=== PATIENT | male | born 1940 | race Caucasian/White ===

== ENCOUNTER → 2017-12-08 | Outpatient (CLI) | payer MEDICARE, BC ==
[~2017-12-08] MED LIST: ALP5 PO; ALPR-459 PO; AMIT-106 PO; AMOX-559 PO; ATOR10TA24 PO; BETA1CAP PO; CYAN1TAB7 PO; FLU45SYR25 IM ONLY; FOLI-68 PO; GLUC-139 PO; HYDR-389 PO; IBUP-1671 PO; LANS30CA63 PO; LANS30CA70 PO; LEVO-85 PO; MET50 PO; OMEG-96 PO; OMEG100027 PO; PROP20TA56 PO; PROP60CA22; SAW80CAP4 PO; UBID10CA11 PO; UBID50CA21 PO; VITA-175 PO; ZOL5 PO; ZOLP-1 PO; [UNRECOGNIZED DRUG - CODE] PO
== END ==
LOC: LAB 15:58
DX: C61 Malignant neoplasm of prostate (principal)
CPT/HCPCS: 36415; 84154

== ENCOUNTER 2017-12-31 06:14 | Emergency (ER) | payer MEDICARE, BC ==
[~2017-12-31] VITALS: Ht 182.9 cm; Wt 97.1 kg
[2017-12-31] MEDS ORDERED: PROP40TA45 PO (06:28)
--- NOTE | 2017-12-31 06:32 | ER Report ---
History and Physical Time Seen By MD: 06:26 Hx. of Stated Complaint: Upper midline (esophageal) discomfort, high blood pressure. (DARREL CANTU MD) HPI/ROS CHIEF COMPLAINT: elevated blood pressure, chest pressure HISTORY OF PRESENT ILLNESS: This is a 77 year old male. He was going to be going to bed at about 0200 and felt like his blood pressure was elevated. He had a "funny feeling" on the left side of his body, which he cannot describe further. He then felt some chest pressure across his chest starting in his left substernal and then eventually moving to the right side. It continues to move around the chest and epigastric area. He took one of his 40mg Propranolol, and seemed to improve a little. He later took a Xanax, which did not seem to change the symptoms. He also chewed two Gavisgon chews which did not seem to help. He went to bed at about 0400, but could not sleep. Pain would change depending on his positioning. He felt like the pain was GI related at this time. Seemed to improve a little with sitting up in a chair, but blood pressure increased again. 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 He has no fevers or chills with this. He has had normal bowel movements the last few days. he has intermittent problems with urination, but no changes. He sees Dr. Contreras for this, and has a history of prostate cancer and is just monitoring this at this time. He denies being short of breath. He has no vision changes or headache with this. He did feel a little bit dizzy. (DARREL CANTU MD) Allergies: Coded Allergies: Sulfa (Sulfonamide Antibiotics) (Verified Allergy, Mild, 12/31/17) iodine (Verified Allergy, Mild, 12/31/17) latex (Unverified Allergy, Unknown, 12/31/17) Uncoded Allergies: ENVIROMENTAL ALLERGIES (Allergy, Mild, 12/12/07) Home Meds Reported Medications Propranolol Hcl (PROPRANOLOL HCL) 40 Mg Tablet, 40 MG PO BID 12/31/17 Beta-Carotene(A) W-C & E/Se (ANTIOXIDANT SOFTGELS) 1 Each Capsule, 1 EACH PO DAILY, CAPSULE 07/19/17 [place]-3 Fatty Acids/Fish Oil (OMEGA 3 1,000 MG SOFTGEL) Unknown Strength Capsule , PO QDAY, CAPSULE 07/19/17 Vitamin B Complex (B COMPLEX) 1 Each Tablet, 1 EACH PO DAILY 07/19/17 Ubidecarenone (CO Q-10) Unknown Strength Capsule, PO, CAPSULE 07/19/17 Zolpidem Tartrate (AMBIEN) 5 Mg Tablet, 1 TAB PO QHS Y for INSOMNIA, TAB 01/29/16 Lansoprazole (LANSOPRAZOLE) 30 Mg Capsule.dr, 1 TAB PO QDAY 08/01/15 Atorvastatin Calcium (LIPITOR) 10 Mg Tablet, 1 TAB PO HS, TAB 08/01/15 Amitriptyline Hcl (AMITRIPTYLINE HCL) 25 Mg Tablet, 40-50 MG PO QHS 08/01/15 Alprazolam (ALPRAZOLAM) 0.25 Mg Tab.rapdis, 1 TAB PO DAILY Y for SPASMS, TAB 08/01/15 Discontinued Reported Medications Propranolol Hcl (PROPRANOLOL HCL) 20 Mg Tablet, 0.5-1 MG PO BID, TAB 01/29/16 Discontinued Scripts Amoxicillin/Pot Clav 875-125 Mg Tab (AUGMENTIN 875-125 TABLET) 1 Each Tablet, 1 TAB PO Q12H, #18 TAB Prov:JONN ANTONIO PAMiriamC 10/31/17 Reviewed Nurses Notes: Yes (DARREL CANTU MD) Hx Smoking: Yes (SMOKED OFF AND ON TILL AGE 30YR (PIPE OR CIGAR OCCASIONAL)) Smoking Status: Former Smoker Hx Substance Use Disorder: No Hx Alcohol Use: Yes (2-4 WEEKLY) (DARREL CANTU MD) Constitutional Vital Sign - Last 24 Hours 12/31/17 12/31/17 12/31/17 12/31/17 06:14 06:22 06:22 06:29 Temp 97.9 Pulse ??? 67 64 Resp 16 14 B/P (MAP) 181/108 181/108 (132) Pulse Ox 90 96 O2 Delivery Room Air 12/31/17 12/31/17 12/31/17 12/31/17 06:30 06:44 06:59 07:08 Pulse 65 67 Resp 6 10 B/P (MAP) 180/112 (134) 180/99 (126) Pulse Ox 94 93 12/31/17 12/31/17 12/31/17 12/31/17 07:14 07:19 07:30 07:33 Pulse 65 ??? Resp 14 B/P (MAP) 188/110 (136) 182/113 (136) Pulse Ox 96 18 18 18 12/31/17 07:34 07:39 07:45 07:50 Pulse 59 60 Resp 19 25 B/P (MAP) 165/102 (123) 173/105 (127) Pulse Ox 93 12/31/17 12/31/17 12/31/17 12/31/17 08:00 08:05 08:20 08:25 Pulse 60 58 60 Resp 19 35 36 B/P (MAP) 173/109 (130) Pulse Ox 94 94 95 12/31/17 12/31/17 12/31/17 12/31/17 08:33 08:40 08:45 08:55 Pulse 58 60 Resp 37 19 B/P (MAP) 148/92 164/92 Pulse Ox 95 93 12/31/17 12/31/17 12/31/17 12/31/17 09:03 09:10 09:15 09:19 Pulse 62 60 Resp 21 12 B/P (MAP) 184/99 177/102 Pulse Ox 95 90 12/31/17 12/31/17 12/31/17 12/31/17 09:24 09:30 09:44 09:50 Pulse 75 ??? Resp 21 B/P (MAP) 109/80 (90) 134/81 (98) 137/93 (108) Pulse Ox 91 Intake and Output 12/31/17 12/31/17 01/01/18 15:00 23:00 07:00 Intake Total 1000 ml Balance 1000 ml (CYNTHIA PEREZ MD) Physical Exam General Appearance: The patient is alert. No acute distress. Non-toxic in appearance. Eyes: Pupils are equal, round. No pallor, injection or icterus. ENT: Mucous membranes are moist. Normal oral mucosa. Posterior oropharynx is normal. Respiratory: Lungs are clear to auscultation. Cardiovascular: Regular rate and rhythm. No murmurs, gallops or rubs. Normal capillary refill. Gastrointestinal: Abdomen is soft and non tender. Nondistended. Normal active bowel sounds. Neurological: Alert and oriented x3. No focal neurologic deficits Skin: Warm and dry. Musculoskeletal: Extremities are nontender. DIFFERENTIAL DIAGNOSIS: After history and physical exam, differential diagnosis was considered for chest pain including but not limited to myocardial ischemia, pericarditis pulmonary embolus, chest wall pain, pleural inflammation and pulmonary infectious causes. ([facility]) Medical Decision Making Data Points Result Diagram: 12/31/17 0708 12/31/17 0708 Laboratory Hematology Test 12/31/17 07:08 12/31/17 10:27 Red Blood Count 5.17 M/uL (4.00-5.60) Mean Corpuscular Volume 93.8 fL (80.0-96.0) Mean Corpuscular Hemoglobin 31.4 pg (26.0-33.0) Mean Corpuscular Hemoglobin Concent 33.5 g/dL (32.0-36.0) Red Cell Distribution Width 14.7 % (11.5-14.5) Mean Platelet Volume 9.5 fL (7.2-11.1) Neutrophils (%) (Auto) 46.4 % (39.4-72.5) Lymphocytes (%) (Auto) 37.4 % (17.6-49.6) Monocytes (%) (Auto) 9.9 % (4.1-12.4) Eosinophils (%) (Auto) 3.8 % (0.4-6.7) Basophils (%) (Auto) 2.5 % (0.3-1.4) Nucleated RBC Relative Count (auto) 0.0 /100WBC Neutrophils # (Auto) 3.6 K/uL (2.0-7.4) Lymphocytes # (Auto) 2.9 K/uL (1.3-3.6) Monocytes # (Auto) 0.8 K/uL (0.3-1.0) Eosinophils # (Auto) 0.3 K/uL (0.0-0.5) Basophils # (Auto) 0.2 K/uL (0.0-0.1) Nucleated RBC Absolute Count (auto) 0.00 K/uL Sodium Level 138 mmol/L (137-145) Potassium Level 4.7 mmol/L (3.5-5.0) Chloride Level 101 mmol/L (98-107) Carbon Dioxide Level 26 mmol/L (22-30) Blood Urea Nitrogen 17 mg/dl (9-21) Creatinine 1.00 mg/dl (0.66-1.25) Glomerular Filtration Rate Calc > 60.0 Random Glucose 99 mg/dl (75-110) Calcium Level 9.5 mg/dl (8.4-10.2) Total Bilirubin 0.5 mg/dl (0.2-1.3) Aspartate Amino Transf (AST/SGOT) 28 U/L (0-35) Alanine Aminotransferase (ALT/SGPT) 40 U/L (0-56) Alkaline Phosphatase 53 U/L (0-126) Total Protein 7.6 gm/dl (6.3-8.2) Albumin 4.1 g/dl (3.5-5.0) Amylase Level 96 U/L (0-110) Lipase 123 U/L (23-300) Troponin I < 0.012 ng/ml Chemistry Test 12/31/17 07:08 12/31/17 10:27 White Blood Count 7.9 k/uL (4.5-11.0) Red Blood Count 5.17 M/uL (4.00-5.60) Hemoglobin 16.2 g/dL (14.0-18.0) Hematocrit 48.5 % (42.0-52.0) Mean Corpuscular Volume 93.8 fL (80.0-96.0) Mean Corpuscular Hemoglobin 31.4 pg (26.0-33.0) Mean Corpuscular Hemoglobin Concent 33.5 g/dL (32.0-36.0) Red Cell Distribution Width 14.7 % (11.5-14.5) Platelet Count 142 K/uL (150-450) Mean Platelet Volume 9.5 fL (7.2-11.1) Neutrophils (%) (Auto) 46.4 % (39.4-72.5) Lymphocytes (%) (Auto) 37.4 % (17.6-49.6) Monocytes (%) (Auto) 9.9 % (4.1-12.4) Eosinophils (%) (Auto) 3.8 % (0.4-6.7) Basophils (%) (Auto) 2.5 % (0.3-1.4) Nucleated RBC Relative Count (auto) 0.0 /100WBC Neutrophils # (Auto) 3.6 K/uL (2.0-7.4) Lymphocytes # (Auto) 2.9 K/uL (1.3-3.6) Monocytes # (Auto) 0.8 K/uL (0.3-1.0) Eosinophils # (Auto) 0.3 K/uL (0.0-0.5) Basophils # (Auto) 0.2 K/uL (0.0-0.1) Nucleated RBC Absolute Count (auto) 0.00 K/uL Glomerular Filtration Rate Calc > 60.0 Calcium Level 9.5 mg/dl (8.4-10.2) Total Bilirubin 0.5 mg/dl (0.2-1.3) Aspartate Amino Transf (AST/SGOT) 28 U/L (0-35) Alanine Aminotransferase (ALT/SGPT) 40 U/L (0-56) Alkaline Phosphatase 53 U/L (0-126) Total Protein 7.6 gm/dl (6.3-8.2) Albumin 4.1 g/dl (3.5-5.0) Amylase Level 96 U/L (0-110) Lipase 123 U/L (23-300) Troponin I < 0.012 ng/ml (CYNTHIA PEREZ MD) EKG/Imaging EKG Interpretation EKG shows sinus rhythm with first-degree AV block, when compared to an EKG from 02/05/2016 no appreciable changes were noted. Monitor Interpretation: Normal Sinus Rhythm Imaging FACILITY: [facility] PATIENT NAME: Dhruv Gonzalez : 1940 MR: [id number] V: [id number] EXAM DATE: ORDERING PHYSICIAN: DARREL CANTU TECHNOLOGIST: Location: [facility] Patient: Dhruv Gonzalez : 1940 Visit/Account:[id number] Date of Sevice: 12/31/2017 EXAMINATION: Abdominal series HISTORY: Epigastric and chest pain. COMPARISON: CT abdomen and pelvis from 08/01/2015. FINDINGS: PA upright view of the chest, 2 AP supine and 2 AP upright views of the abdomen are obtained. Lines/tubes: None. Bowel gas pattern: No distended loops of bowel, air fluid levels or free air. There is moderate amount of stool throughout the colon. Soft tissues: Surgical clips in the right upper quadrant. Bony structures: Degenerative changes of the spine. Visualized lungs: Negative. IMPRESSION: 1. No evidence of bowel obstruction or free air. 2. Moderate amount of stool in the colon could indicate constipation. Report Dictated By: Kelly Herring MD at 12/31/2017 7:44 AM Report E-Signed By: Kelly Herring MD at 12/31/2017 7:46 AM WSN:[id number] (CYNTHIA PEREZ MD) ED Course/Re-evaluation ED Course 12/31/2017 7:08:11 am patient with persistent elevated blood pressure EKG shows sinus rhythm with first-degree AV block otherwise normal. Plan will be to treat blood pressure with 20 mg of IV labetalol at this time. Plan will be repeat delta troponin at 4 hour window justine Re-evaluation 12/31/2017 10:56:11 am 2nd troponin remaining negative. Patient's blood pressure responded nicely to 2.5 mg of cardiac current blood pressure is 127/ 77. Patient is feeling better we'll discharge home with close follow-up with primary care provider Decision to Disposition Date: Dec 31, 2017 Decision to Disposition Time: 10:56 (CYNTHIA PEREZ MD) Depart Departure Latest Vital Signs Vital Signs Date Time Temp Pulse Resp B/P (MAP) Pulse Ox O2 Delivery O2 Flow Rate FiO2 12/31/17 09:50 137/93 (108) 12/31/17 09:44 ??? 12/31/17 09:24 21 91 12/31/17 06:22 97.9 Room Air (CYNTHIA PERZE MD) Impression: Primary Impression: Essential hypertension Condition: Improved Disposition: HOME OR SELF-CARE Patient Instructions: Hypertension (DC) Additional Instructions: Schedule follow-up with her primary care provider this week for repeat blood pressure check. Continue all your outpatient medications as directed DARREL CANTU MD Dec 31, 2017 06:32 CYNTHIA PEREZ MD Dec 31, 2017 07:10
[2017-12-31] MEDS ORDERED: ASPIRIN 81 MG CHEW PO ONE (06:50)
[2017-12-31] MEDS ORDERED: NS(*) 0.9% 1000 ML BAG 1,000 ML IV ONE (06:50)
[2017-12-31] MEDS ORDERED: PANTOPRAZOLE SOD 40 MG IV VIAL IVP ONE (06:50)
[2017-12-31] MEDS ORDERED: LABETALOL HCL 20 MG/4 ML SYR IVP STA (07:06)
[2017-12-31 07:27] LABS: PLATELET COUNT, AUTOMATED 142 K/uL (150-450)
[2017-12-31] MEDS ORDERED: NICARDIPINE IV ONE ×2 (07:40→09:15)
--- NOTE | 2017-12-31 07:50 | RADIOLOGY IMAGING REPORT ---
FACILITY: [facility] [place] PATIENT NAME: Dhruv Gonzalez : 1940 MR: [id number] V: [id number] EXAM DATE: ORDERING PHYSICIAN: DARREL CANTU TECHNOLOGIST: Location[place] [facility] [place] Patient: Dhruv Gonzalez : 1940 Visit/Account:[id number] Date of Sevice: 12/31/2017 EXAMINATION: Abdominal series HISTORY: Epigastric and chest pain. COMPARISON: CT abdomen and pelvis from 08/01/2015. FINDINGS: PA upright view of the chest, 2 AP supine and 2 AP upright views of the abdomen are obtaine d. Lines/tubes: None. Bowel gas pattern: No distended loops of bowel, air fluid levels or free air. There is moderate amou nt of stool throughout the colon. Soft tissues: Surgical clips in the right upper quadrant. Bony structures: Degenerative changes of the spine. Visualized lungs: Negative. IMPRESSION: 1. No evidence of bowel obstruction or free air. 2. Moderate amount of stool in the colon could indicate constipation. Report Dictated By: Kelly Herring MD at 12/31/2017 7:44 AM Report E-Signed By: Kelly Herring MD at 12/31/2017 7:46 AM WSN:[id number]
[2017-12-31] MEDS ORDERED: LORazepam 2 MG/ML VIAL IVP ONE (08:10)
--- NOTE | 2017-12-31 09:11 | EKG ---
[place] [facility] [place]IENT NAME: SHER BRAVO : [id number] MR: [id number] V: [id number] EXAM DATE: ORDERING PHYSICIAN: DARREL CANTU TECHNOLOGIST: SIVA Gaytan Reason : CHEST PAIN Blood Pressure : / mmHG Vent. Rate : 062 BPM Atrial Rate : 062 BPM P-R Int : 216 ms QRS Dur : 108 ms QT Int : 408 ms P-R-T Axes : 051 -22 044 degrees QTc Int : 414 ms Sinus rhythm with 1st degree AV block Otherwise normal ECG No previous ECGs available Confirmed by RUBI RICHARD ([id number]) on 12/31/2017 3:32:43 PM Referred By: ALONDRA Confirmed By:RUBI RICHARD
[2017-12-31 11:00] VITALS: BP 143/89
== END 2017-12-31 11:06 | disposition home or self-care (01) ==
LOC: ER 06:35
DX: I10 Essential (primary) hypertension (principal)
CPT/HCPCS: 36415; 74022; 82150; 83690; 84484; 85025; 93005; 96361; 96374; 96375; 99284; A9270; C9113; J2060; J3490; J7030; 82040; 82247; 82310; 82374; 82435; 82565; 82947; 84075; 84132; 84155; 84295; 84450; 84460; 84520

== ENCOUNTER → 2018-03-18 | Outpatient (CLI) | payer MEDICARE, BC ==
[~2018-03-18] MED LIST changes: +PROP40TA45 PO
== END ==
LOC: LAB 13:17
DX: C61 Malignant neoplasm of prostate (principal)
CPT/HCPCS: 36415; 84154

== ENCOUNTER → 2018-05-18 | Outpatient (CLI) | payer MEDICARE, BC ==
[~2018-05-18] MED LIST changes: +IOPAMIDOL 76% 100 ML INFUS BTL 0 ML ONE
--- NOTE | 2018-05-18 10:17 | RADIOLOGY IMAGING REPORT ---
FACILITY: [facility] [place] PATIENT NAME: Dhruv Gonzalez : 1940 MR: [id number] V: [id number] EXAM DATE: ORDERING PHYSICIAN: SARITHA HUDSON TECHNOLOGIST: Location: [facility] [place] Patient: Dhruv Gonzalez : 1940 Visit/Account:[id number] Date of Sevice: 05/18/2018 ABDOMEN/PELVIS W/O CONTRAST Indication: Prostate cancer COMPARISON STUDIES: CT abdomen and pelvis 08/01/2015.. TECHNIQUE: Noncontrast CT lung bases to the pubic symphysis obtained. One of the following dose optimization techniques was utilized in the performance of this exam: autom ated exposure control; adjustment of the mA and/or kV according to the patient's size; or use of an i terative reconstruction technique. Specific details can be referenced in the facility's radiology CT exam operational policy. FINDINGS: Liver / gallbladder: Liver demonstrates normal attenuation. There are postoperative changes from a c holecystectomy. Pancreas: Pancreas is unremarkable. Spleen: Normal. Adrenal glands: Normal. Kidneys: No calculi, or hydronephrosis. Normal attenuation is seen. Pelvis: Urinary bladder is normal. Prostate is unremarkable. There is no abnormal soft tissue nodu lar mass in the pelvis. Bowel: There is no focal abnormality in the small bowel or colon. Vessels: Negative Musculoskeletal / Body wall: There are no lytic or blastic bone lesions. Large anterior osteophyte is seen at L4-5. Lymph node assessment: Negative Lower chest: Negative IMPRESSION: 1. Postoperative changes from a cholecystectomy. 2. Patient with history of prostate cancer, no evidence of abnormal soft tissue nodule, lymphadenopa thy, or bone lesions. Report Dictated By: Titus Lockhart at 05/18/2018 10:09 AM Report E-Signed By: Titus Lockhart at 05/18/2018 10:13 AM WSN:[email or web address]
--- NOTE | 2018-05-18 17:28 | RADIOLOGY IMAGING REPORT ---
FACILITY: [facility] - [place] PATIENT NAME: Dhruv Gonzalez : 1940 MR: [id number] V: [id number] EXAM DATE: ORDERING PHYSICIAN: SARITHA HUDSON TECHNOLOGIST: Location: [facility] - [place] Patient: Dhruv Gonzalez : 1940 Visit/Account:[id number] Date of Sevice: 05/18/2018 EXAMINATION: Nuclear Medicine Whole Body Bone Scan 05/18/2018 8:00 AM HISTORY: Prostate carcinoma TECHNIQUE: 23.4 mCi technetium 99m MDP was injected intravenously. Delayed anterior and posterior whole body gamma camera images were obtained. Additional gamma camera images: Spot imaging over the skull and neck COMPARISON STUDIES: 03/02/2016 FINDINGS: Bone radiotracer activity: Left-sided lumbosacral localization is probably degenerative in etiology and is less intense than previously. Additional degenerative uptake in the extremities and the rai oclavicular joints. No clear bony metastatic pattern. Extraosseous radiotracer activity: normal Renal and urinary collecting system activity: normal. IMPRESSION: No evidence of bony metastatic disease. Report Dictated By: Titus Zhou MD at 05/18/2018 5:23 PM Report E-Signed By: Titus Zhou MD at 05/18/2018 5:24 PM WSN:[email or web address]
== END ==
LOC: CT 02:12
DX: Z90.49 Acquired absence of other specified parts of digestive tract (principal)
CPT/HCPCS: 36415; 74176; 78306; 82565; 84154; A9503; Q9967

== ENCOUNTER → 2018-05-19 | Outpatient (CLI) | payer MEDICARE, BC ==
[~2018-05-19] MED LIST changes: -IOPAMIDOL 76% 100 ML INFUS BTL 0 ML ONE
== END ==
LOC: LAB 16:24
DX: N30.01 Acute cystitis with hematuria (principal); R82.79 Other abnormal findings on microbiological examination of urine
CPT/HCPCS: 81001; 87088

== ENCOUNTER 2018-05-23 12:30 | Outpatient (RCR) | payer MEDICARE, BC ==
--- NOTE | 2018-05-24 14:24 | TOBIN CONSULT ---
EVENT DATE: May 23, 2018 DIAGNOSIS [place] 3+3=6/10 adenocarcinoma of the prostate. Patient electing initially for active surveillance. He is here to discuss therapeutic radiation options. Prior history of [place] 6 tumor involving the left lateral lobe of the prostate on February 05, 2016. Most recent PSA May 18, 2018 at 7.2 ng/mL. Negative CT of the abdomen and pelvis without contrast due to ALLERGY TO IODINE. Stage T1c. HISTORY This is a 77-year-old gentleman who is here at the request of Dr. Contreras to simply discuss options related to his prostate cancer. Patient has friends who have been treated with prostate brachytherapy as well as external beam radiotherapy, and he wanted to hear first hand what his options would be if there is progression. Patient was originally diagnosed with prostate cancer in January of 2016. His PSA had been stable in the 2.6 to mid 4.0 range until late 2014, when the PSA kamilla into the 6.1 to 6.5 range. The patient opted for prostate biopsy at that time. He was found to have [place] 6 tumor involving left lateral middle lobe specimen. There was atypical glands, however, on additional biopsy specimens and a background of chronic prostatitis. Patient elected for active surveillance, and has been having PSAs every three to six months since. The patient has a history as well of intermittent prostatitis. He has over five or six episodes in the last 15 years. Last week he presented with hematuria to Dr. Contreras and was found to have clinical prostatitis. He was started on antibiotics and has clinically improved. He generally responds to Levaquin. He will see Dr. Contreras later today to review his urinalysis report. Patient denies any new or persistent bone pain. Patient states he has nocturia x 0-1, no dysuria today. He does occasionally have urinary urgency. Denies any leakage. Generally voids every 1-2 hours during the day depending on fluid intake. Patient recently was seen in the ER for some atypical pain. He was found to have a cardiac arrhythmia. He did have restaging radiographic studies performed in the last month. Those studies included a CT scan of the abdomen and pelvis without contrast on May 18, 2018. No pelvic lymphadenopathy noted. Large prostate is noted, and films were reviewed with the patient. There is a prominent median lobe. Seminal vesicles appeared symmetric. Degenerative change of the lumbar spine. Bone scan was negative for metastatic disease on May 18, 2018. The patient also informs me that he has a second neurologist in [place], Dr. Spencer. He is pondering an MRI scan of the prostate and asked for my opinion today. He would like to review his options at this juncture. MEDICATIONS 1. Propranolol 40 mg b.i.d. 2. Zolpidem 5 mg nightly p.r.n. 3. Lansoprazole 30 mg q.day. 4. Atorvastatin 10 mg daily. 5. Amitriptyline 25 mg nightly. ALLERGIES IODINE, SULFA, LATEX. PAST MEDICAL HISTORY Hypertension, cardiac arrhythmias, history of Iqbal's esophagus, type 2 diabetes. SOCIAL HISTORY Patient is semiretired from [employer]. He owns multiple properties in the area. He is and accompanied by his spouse. Nonsmoker. FAMILY HISTORY Notable for a mother who had breast cancer and at age 45. Father lived to age 78. He has no brothers or sisters. REVIEW OF SYSTEMS On comprehensive review of systems, minor fatigue. He does use CPAP at night. He has history of palpitations and AV edgar block, history of tinnitus, history of recurrent prostatitis, history of Iqbal's esophagus, presently under good control after 30 years. He has an EGD every three to five years. He does have history of peripheral neuropathy and tremor. PHYSICAL EXAMINATION GENERAL: Pleasant, talkative 77-year-old male, large build. Height 6 feet 0 inches. Weight 101 kg. VITALS: BP 128/77, pulse 77, O2 sat 93% on room air. HEENT: No lymphadenopathy. LUNGS: Clear bilaterally. HEART: Regular. No audible murmur. ABDOMEN: Obese. RECTAL: Exam is deferred today due to recent episode of prostatitis this past week. EXTREMITIES: No significant edema or cyanosis. NEUROLOGICAL: Grossly intact. IMPRESSION This is a 77-year-old gentleman who was diagnosed two years ago with [place] 6 adenocarcinoma of the prostate. This is in the background of recurrent prostatitis over 10-15 years. He had an additional episode of prostatitis last week and had an episode of hematuria, and is presently receiving oral antibiotics by Dr. Contreras with good symptom relief. At his request, I reviewed options for him to consider if he elects to proceed with treatment. Those options include external beam radiation and therapy with IMRT treatment technique, which was described to the patient in detail. Palladium 103 brachytherapy is also a consideration, although I would be cautious in this gentleman due to his history of recurrent prostatitis and the large gland. I do believe he would be at higher risk for complications with that technique. Other options are to continue active surveillance. I told the patient that in general after several years, I would consider recommending re-biopsy of the gland to see if there is progression towards [place] 7, 8 or 9 malignancy or higher volume of cancer. He is resistant to re- biopsy, since he had some difficulties with the first biopsy. At the end of extensive discussion, it was elected to proceed as follows. Repeat the PSA in two months after an adequate treatment course with antibiotics. This will be compared to his present number of 7.2 ng/mL. He will contact Dr. Spencer in [place] and have an MRI scan performed of the prostate to look for any subtle changes. I advised him to delay that study until he is adequately treated for the prostatitis. Patient was very appreciative for the information which was provided to him today over 90 minute consultation. I will tentatively see him back in the radiation oncology clinic in late July with updated blood work. He will continue close surveillance with Dr. Contreras. He also travels intermittently to [place], since he has a second home near [facility] as well. Pathology and radiographic imaging and serial laboratory studies from 2008 were reviewed with the patient today. He appears to be well informed, and has done some independent reading on prostate carcinoma. I would estimate his life expectancy at greater than five years, since he has no significant cardiac or pulmonary disease. [facility] INSANEAlessandra
== END 2018-06-01 12:33 | disposition home or self-care (01) ==
LOC: RAON 12:30
PROVIDERS: ATTEND Radiology Radiation Oncology
DX: C61 Malignant neoplasm of prostate (principal); I10 Essential (primary) hypertension; I49.9 Cardiac arrhythmia, unspecified; E11.9 Type 2 diabetes mellitus without complications; K22.70 Barrett's esophagus without dysplasia
CPT/HCPCS: 99202

== ENCOUNTER 2018-08-08 13:00 | Outpatient (RCR) | payer MEDICARE, BC ==
--- NOTE | 2018-08-08 19:25 | ONCOLOGY FOLLOW UP NOTE ---
EVENT DATE: August 08, 2018 DIAGNOSIS Iraida 3 + 3 = 6/10 adenocarcinoma of the prostate. Tumor identified initially on ultrasound needle biopsy of the left lobe of the prostate in the lateral middle specimen. Background of chronic prostatitis was also appreciated which has been long-standing. Recent MRI scan of the prostate demonstrating 6 x 6 mm nodule in the posteromedial peripheral zone of the right mid prostate gland with moderate hyperintensity on diffusion-weighted images consistent with a clinically significant cancer at that location by MRI criteria. Therefore, the patient has bilobed prostate carcinoma by clinical and radiographic studies, negative metastatic workup for any lymphadenopathy or metastasis. INTERVAL HISTORY This is a pleasant, 78-year-old gentleman who lives half the year in [place] and half the year in [place]. I initially saw him in consultation in May of this past year. He related to me he had recent PSA elevation of 7.2 with prior stability of the numbers in the 2.6 to 4.0 range through 2014 that gradually increased to mid-6 range. Patient underwent a biopsy on February 05, 2016, of the prostate by Dr. Contreras. Twelve core biopsies were obtained. Focal adenocarcinoma in one positive biopsy from the left lobe. Seven other biopsy specimens revealed chronic prostatitis. The patient initially opted for active surveillance and has been proceeding with that schedule over the last several years. He has been concerned whether he is making the right decision and is back in the office today to review the results of MRI scan of the prostate, which were initially mentioned to him by Dr. Spencer who is also his urologist in [place]. The MRI scan was obtained on August 02, 2018. It was notable for a 6 x 5.7 x 5.9 cm gland with a large volume of 106 mL. There was significant lesion noted in the right mid portion of the gland, measuring 6 x 6 mm on the T2 signals. There was early arterial enhancement, moderate hyperintensity and diffusion- weighted images, and the overall appearance was a high probability that significant cancer is present, PI-RADS 4. Seminal vesicles were unremarkable. No lymphadenopathy. Pelvic bone structure was normal. Voiding function has improved after course of Levaquin for prostatitis several months ago. No recent hematuria. He does have urgency when he travels in a car and gets out of the car, or if he has been sitting for a prolonged period of time. His AUA score was 16. Patient denies any new or persistent bone pain. He was seen accompanied by his son today. MEDICATIONS 1. Propranolol 40 mg b.i.d. 2. Zolpidem 5 mg nightly p.r.n. 3. Lansoprazole 30 mg q.day. 4. Atorvastatin 10 mg daily. 5. Amitriptyline 25 mg nightly. ALLERGIES IODINE, SULFA, LATEX. PAST MEDICAL HISTORY Hypertension, cardiac arrhythmias, history of Iqbal esophagus, type 2 diabetes. SOCIAL HISTORY Patient is semiretired from [employer]. He owns multiple properties in the area. He is and accompanied by his spouse. Nonsmoker. FAMILY HISTORY Notable for a mother who had breast cancer and at age 45. Father lived to age 78. He has no brothers or sisters. REVIEW OF SYSTEMS Notable for history of irregular heart beat and palpitations, peripheral neuropathy, the bladder urgency. Denies any musculoskeletal or digestive symptoms at this time. PHYSICAL EXAMINATION Deferred. This visit was predominantly for counseling and review of options. IMPRESSION This is a pleasant, 78-year-old gentleman with Iraida 6 adenocarcinoma of the prostate, initially managed with active surveillance for the past two years. He has now undergone an MRI scan which demonstrates a significant lesion in the right lobe of the prostate. He was already found to have a biopsy-proven carcinoma in the left lobe. He is not a candidate for palladium-103 seeds in my opinion since his prostate is greater than 60 mL in size. He would have an increased risk of obstructive uropathy. He would be a candidate for external beam radiotherapy with small field intensity modulated radiotherapy approach. I explained the standard fractionation and hypofractionated programs to the patient, and then I detailed the exact methods by which the accelerator delivers the treatment to the gland. We do have a cone beam CT attachment which allows us to treat the prostate with tight margins, and generally side effects are limited to urinary urgency or frequency around week three through five particularly. Most of the time it responds to Flomax or Uroxatral and further field reduction. Rectal complications such as bleeding should be less than 2%.at modern centers. Fatigue should be fairly minor since the field is very small. At the end of our conversation today, the patient indicated he would like to proceed with treating the gland. He is waiting for his to recover from recent hip surgery in [place], so we will delay the treatment course until November. He was requested to have a followup PSA in [place] in October and forward that on to me. I wish to thank Dr. Spencer for both scheduling and forwarding the MRI scan report to me today for further review. Every care will be taken to minimize any type of side effect with the patient's clinical history and treatment technique, and doses will be modified based on tolerance. Patient was very comfortable with this approach, and signed consent was obtained for treatment today. MTDD
[2018-08-09] MEDS ORDERED: AMLO2.5T76 PO (09:58)
== END 2018-09-04 14:31 | disposition home or self-care (01) ==
LOC: RAON 13:00
PROVIDERS: ATTEND Radiology Radiation Oncology
DX: C61 Malignant neoplasm of prostate (principal); R53.1 Weakness; R20.2 Paresthesia of skin
CPT/HCPCS: 99212

== ENCOUNTER 2018-10-06 02:53 | Emergency (ER) | payer MEDICARE, BC ==
[~2018-10-06 02:53] MED LIST changes: +AMLO2.5T76 PO
--- NOTE | 2018-10-06 03:08 | ER Report ---
History and Physical Time Seen By MD: 03:08 Hx. of Stated Complaint: patient started having chest, upper abd. pain around 2230 last; 5mg of amlodipine and 10mg of propranolol, and a low dose of xanax and 3 gaviscon pills before coming into here; states pain is constant and persistent HPI/ROS CHIEF COMPLAINT: chest pain HISTORY OF PRESENT ILLNESS: This is a 78 year old male. He is having central substernal chest pain and pain in the epigastric area. This is constant pressure. Does not radiate. No change with breathing. He walked up stairs to get his son and did not get short of breath. Noted that his blood pressure was elevated and took his Amlodipine and Propranolol, but pressures are still high. Took small amount of Xanax without relief. Then took Gaviscon without relief. No nausea or vomiting. No shortness of breath. No fevers, chills or cough. No weakness or numbness. Bowel working well. Chronic urinary changes without problems tonight. Allergies: Coded Allergies: Sulfa (Sulfonamide Antibiotics) (Verified Allergy, Mild, 12/31/17) iodine (Verified Allergy, Mild, 12/31/17) latex (Unverified Allergy, Unknown, 12/31/17) Uncoded Allergies: ENVIROMENTAL ALLERGIES (Allergy, Mild, 12/12/07) Home Meds Active Scripts Hydrocodone Bit/Acetaminophen (HYDROCODON-ACETAMINOPHEN 5-325) 1 Each Tablet, 1 EACH PO Q4H PRN for PAIN, #8 TAB 0 Refills Prov:DARREL CANTU MD 10/06/18 Sucralfate (CARAFATE) 1 Gm Tablet, 1 GM PO QID, #60 TAB 0 Refills Prov:DARREL CANTU MD 10/06/18 Alprazolam 0.25 Mg Tab (XANAX 0.25 MG TAB) 0.25 Mg Tablet, 1 TAB PO TID PRN for SPASMS, #10 TAB 0 Refills Prov:DARREL CANTU MD 10/06/18 Reported Medications Amlodipine Besylate (AMLODIPINE BESYLATE) 2.5 Mg Tablet, 1 TAB PO QDAY, #30 TAB 08/09/18 Propranolol Hcl (PROPRANOLOL HCL) 40 Mg Tablet, 20 MG PO BID 12/31/17 Beta-Carotene(A) W-C & E/Se (ANTIOXIDANT SOFTGELS) 1 Each Capsule, 1 EACH PO DAILY, CAPSULE 07/19/17 [place]-3 Fatty Acids/Fish Oil (OMEGA 3 1,000 MG SOFTGEL) Unknown Strength Capsule, PO QDAY, CAPSULE 07/19/17 Vitamin B Complex (B COMPLEX) 1 Each Tablet, 1 EACH PO DAILY 07/19/17 Ubidecarenone (CO Q-10) Unknown Strength Capsule, PO, CAPSULE 07/19/17 Zolpidem Tartrate (AMBIEN) 5 Mg Tablet, 1 TAB PO QHS PRN for INSOMNIA, TAB 01/29/16 Lansoprazole (LANSOPRAZOLE) 30 Mg Capsule.dr, 1 TAB PO QDAY 08/01/15 Atorvastatin Calcium (LIPITOR) 10 Mg Tablet, 1 TAB PO HS, TAB 08/01/15 Amitriptyline Hcl (AMITRIPTYLINE HCL) 25 Mg Tablet, 20-30 MG PO QHS 08/01/15 Alprazolam (ALPRAZOLAM) 0.25 Mg Tab.rapdis, 1 TAB PO DAILY PRN for SPASMS, TAB 08/01/15 Past Medical/Surgical History Hypercholesterolemia, Hypertension, Ascending aortic aneurysm. GERD with Iqbal's esophagus, Type 2 Diabetes, Prostate cancer and prostatic hypertrophy, h/o cholecystectomy. Reviewed Nurses Notes: Yes Hx Smoking: Yes (SMOKED OFF AND ON TILL AGE 30YR (PIPE OR CIGAR OCCASIONAL)) Smoking Status: Former Smoker Hx Substance Use Disorder: No Hx Alcohol Use: Yes (2-4 WEEKLY) Constitutional Vital Sign - Last 24 Hours 10/06/18 10/06/18 10/06/18 10/06/18 02:53 02:57 03:01 03:15 Temp 97.3 Pulse ??? 69 Resp 18 B/P (MAP) 178/103 178/103 (128) 173/100 (124) Pulse Ox 95 O2 Delivery Room Air 10/06/18 10/06/18 10/06/18 10/06/18 03:23 03:30 03:53 03:57 Pulse 69 62 Resp 31 14 B/P (MAP) 156/89 (111) 152/92 (112) Pulse Ox 95 93 10/06/18 10/06/18 10/06/18 10/06/18 04:00 04:16 04:30 04:33 Pulse 59 Resp 10 B/P (MAP) 157/91 (113) 148/95 (112) 151/87 (108) Pulse Ox 93 10/06/18 10/06/18 10/06/18 10/06/18 04:38 04:45 05:00 05:08 Pulse 64 65 Resp 18 16 B/P (MAP) 157/100 (119) 156/93 (114) Pulse Ox 95 93 10/06/18 10/06/18 10/06/18 10/06/18 05:15 05:20 05:30 05:45 Pulse 60 B/P (MAP) 151/98 (115) 151/99 (116) 141/91 (108) 10/06/18 10/06/18 10/06/18 10/06/18 05:50 06:00 06:15 06:20 Pulse 61 58 Resp 12 13 B/P (MAP) 164/96 (118) 151/95 (113) Pulse Ox 93 93 10/06/18 10/06/18 10/06/18 10/06/18 06:30 06:45 06:50 07:00 Pulse 58 Resp 11 B/P (MAP) 145/91 (109) 132/87 (102) 146/90 (108) Pulse Ox 86 10/06/18 10/06/18 10/06/18 07:15 07:30 07:45 Resp 9 B/P (MAP) 148/97 (114) 133/81 (98) 137/86 (103) Pulse Ox 90 Physical Exam General Appearance: The patient is alert. No acute distress. Eyes: Pupils are equal, round. No pallor, injection or icterus. ENT: Mucous membranes are moist. Normal oral mucosa. Posterior oropharynx is normal. Neck: Supple and non tender. Respiratory: Lungs are clear to auscultation. Cardiovascular: Regular rate and rhythm. No murmurs, gallops or rubs. Normal capillary refill. No edema. Gastrointestinal: Abdomen is soft and non tender. Nondistended. Normal active bowel sounds. No costovertebral angle tenderness with percussion. Neurological: Alert and oriented x3. No focal neurologic deficits Skin: Warm and dry. No rashes. Musculoskeletal: Extremities are nontender. Some mild pain with palpation of the chest wall. No tenderness in palpation of the cervical, thoracic and lumbar spine. DIFFERENTIAL DIAGNOSIS: After history and physical exam, differential diagnosis was considered for chest pain including but not limited to myocardial ischemia, pericarditis pulmonary embolus, chest wall pain, pleural inflammation and pulmonary infectious causes. Also consider aortic dissection given his history of ascending abdominal aortic aneurism and elevated blood pressure. Medical Decision Making Data Points Result Diagram: 10/06/18 0345 10/06/18 0345 Laboratory Hematology Test 10/06/18 03:45 10/06/18 07:15 Red Blood Count 5.30 M/uL (4.00-5.60) Mean Corpuscular Volume 94.4 fL (80.0-96.0) Mean Corpuscular Hemoglobin 32.1 pg (26.0-33.0) Mean Corpuscular Hemoglobin Concent 34.0 g/dL (32.0-36.0) Red Cell Distribution Width 14.9 % (11.5-14.5) Mean Platelet Volume 9.4 fL (7.2-11.1) Neutrophils (%) (Auto) 45.3 % (39.4-72.5) Lymphocytes (%) (Auto) 41.1 % (17.6-49.6) Monocytes (%) (Auto) 9.6 % (4.1-12.4) Eosinophils (%) (Auto) 3.3 % (0.4-6.7) Basophils (%) (Auto) 0.7 % (0.3-1.4) Nucleated RBC Relative Count (auto) 0.0 /100WBC Neutrophils # (Auto) 3.0 K/uL (2.0-7.4) Lymphocytes # (Auto) 2.7 K/uL (1.3-3.6) Monocytes # (Auto) 0.6 K/uL (0.3-1.0) Eosinophils # (Auto) 0.2 K/uL (0.0-0.5) Basophils # (Auto) 0.0 K/uL (0.0-0.1) Nucleated RBC Absolute Count (auto) 0.00 K/uL D-Dimer Quantitative (PE/DVT) < 0.27 ug/ml (0-0.50) Sodium Level 140 mmol/L (137-145) Potassium Level 4.0 mmol/L (3.5-5.0) Chloride Level 105 mmol/L (98-107) Carbon Dioxide Level 25 mmol/L (22-30) Blood Urea Nitrogen 15 mg/dl (9-21) Creatinine 0.90 mg/dl (0.66-1.25) Glomerular Filtration Rate Calc > 60.0 Random Glucose 118 mg/dl (75-110) Calcium Level 9.4 mg/dl (8.4-10.2) Total Bilirubin 0.6 mg/dl (0.2-1.3) Aspartate Amino Transf (AST/SGOT) 32 U/L (0-35) Alanine Aminotransferase (ALT/SGPT) 42 U/L (0-56) Alkaline Phosphatase 52 U/L (0-126) B-Type Natriuretic Peptide 8 pg/ml (0-100) Total Protein 7.6 g/dl (6.3-8.2) Albumin 4.3 g/dl (3.5-5.0) Amylase Level 84 U/L (0-110) Lipase 89 U/L (23-300) Troponin I < 0.012 ng/ml Chemistry Test 10/06/18 03:45 10/06/18 07:15 White Blood Count 6.7 k/uL (4.5-11.0) Red Blood Count 5.30 M/uL (4.00-5.60) Hemoglobin 17.0 g/dL (14.0-18.0) Hematocrit 50.1 % (42.0-52.0) Mean Corpuscular Volume 94.4 fL (80.0-96.0) Mean Corpuscular Hemoglobin 32.1 pg (26.0-33.0) Mean Corpuscular Hemoglobin Concent 34.0 g/dL (32.0-36.0) Red Cell Distribution Width 14.9 % (11.5-14.5) Platelet Count 154 K/uL (150-450) Mean Platelet Volume 9.4 fL (7.2-11.1) Neutrophils (%) (Auto) 45.3 % (39.4-72.5) Lymphocytes (%) (Auto) 41.1 % (17.6-49.6) Monocytes (%) (Auto) 9.6 % (4.1-12.4) Eosinophils (%) (Auto) 3.3 % (0.4-6.7) Basophils (%) (Auto) 0.7 % (0.3-1.4) Nucleated RBC Relative Count (auto) 0.0 /100WBC Neutrophils # (Auto) 3.0 K/uL (2.0-7.4) Lymphocytes # (Auto) 2.7 K/uL (1.3-3.6) Monocytes # (Auto) 0.6 K/uL (0.3-1.0) Eosinophils # (Auto) 0.2 K/uL (0.0-0.5) Basophils # (Auto) 0.0 K/uL (0.0-0.1) Nucleated RBC Absolute Count (auto) 0.00 K/uL D-Dimer Quantitative (PE/DVT) < 0.27 ug/ml (0-0.50) Glomerular Filtration Rate Calc > 60.0 Calcium Level 9.4 mg/dl (8.4-10.2) Total Bilirubin 0.6 mg/dl (0.2-1.3) Aspartate Amino Transf (AST/SGOT) 32 U/L (0-35) Alanine Aminotransferase (ALT/SGPT) 42 U/L (0-56) Alkaline Phosphatase 52 U/L (0-126) B-Type Natriuretic Peptide 8 pg/ml (0-100) Total Protein 7.6 g/dl (6.3-8.2) Albumin 4.3 g/dl (3.5-5.0) Amylase Level 84 U/L (0-110) Lipase 89 U/L (23-300) Troponin I < 0.012 ng/ml Coagulation Test 10/06/18 03:45 D-Dimer Quantitative (PE/DVT) < 0.27 ug/ml EKG/Imaging EKG Interpretation EKG without any signs of ischemia. Imaging TWO VIEW CHEST 10/06/2018 3:26 AM. INDICATION: Chest Pain COMPARISON: 02/04/2018. FINDINGS: Lungs are well-expanded. The lungs are clear. No pneumothorax or pleural effusion. Pulmonary vasculature is unremarkable. Heart size is normal. Cholecystectomy clips. IMPRESSION: No acute cardiopulmonary abnormality. Report Dictated By: Watson Rowan MD at 10/06/2018 4:28 AM COMPUTED TOMOGRAPHY CHEST WITHOUT INTRAVENOUS CONTRAST DATE OF EXAM: 10/06/2018 5:51 AM CLINICAL INDICATION: Chest pain history of ascending aortic aneurysm. Severe contrast allergy.. COMPARISON: Same-day chest radiograph, CT abdomen and pelvis 05/18/2018. TECHNIQUE: Noncontrast axial chest CT performed. Sagittal and coronal multiplanar reconstructions were performed. One of the following dose optimization techniques was utilized in the performance of this exam: Automated exposure control; adjustment of the mA and/or kV according to the patient's size; or use of an iterative reconstruction technique. Specific details can be referenced in the facility's radiology CT exam operational policy. FINDINGS: Thyroid: Normal. Thoracic inlet: Normal. Heart and great vessels: Heart size is normal. No pericardial effusion. Mild coronary artery calcification. Dilated ascending aorta measuring approximately 4.4 cm in diameter. No adjacent inflammation. No crescentic hyperattenuation to suggest intramural hematoma. Mild atherosclerotic calcification. Central pu lmonary arteries are unremarkable. Mediastinum and anabel: No adenopathy. Lungs and pleura: Mild scarring/atelectasis. No suspicious consolidation, pleural effusion or pneumothorax. Calcified granuloma in the left posterior costophrenic sulcus. Breast and axilla: No adenopathy. Upper abdomen: Nonacute. Cholecystectomy. Bones and soft tissues: No acute abnormality or suspicious lesion. IMPRESSION: 1. Ascending aorta measures 4.4 cm in diameter. Although subtle dissection cannot be excluded, there is no apparent acute abnormality on this noncontrast examination. 2. Mild coronary artery calcification. Report Dictated By: Watson Rowan MD at 10/06/2018 6:36 AM ED Course/Re-evaluation Clinical Indication for ER IV: Hydration, IV Access ED Course Labs unremarkable, normal troponin, d-dimer, CBC and CMP. Chest x-ray negative and EKG negative for ischemia. He had a dose of Morphine initially, with little change in pain. Had a GI cocktail, and this did help with pain. Pain changed position in the chest and upper abdomen. CT scan was done, although without contrast due to contrast allergy, and showed no acute problems. Ascending aortic aneurysm was unchanged measuring 4.4cm. Repeat troponin was negative. This appears to be GI related and given his history of GERD and Iqbal's, and the fact that he is not taking the lansoprazole regularly anymore, this is likely a gastritis or esophagitis. Will treat accordingly. Reviewed all of this with the patient. See instructions below. Decision to Disposition Date: Oct 06, 2018 Decision to Disposition Time: 07:12 Depart Departure Latest Vital Signs Vital Signs Date Time Temp Pulse Resp B/P (MAP) Pulse Ox O2 Delivery O2 Flow Rate FiO2 10/06/18 07:45 137/86 (103) 11/30/18 07:30 9 90 10/06/18 06:50 58 10/06/18 02:57 97.3 Room Air Impression: Primary Impression: Chest pain due to GERD Additional Impression: Gastritis Condition: Improved Disposition: HOME OR SELF-CARE New Scripts Hydrocodone Bit/Acetaminophen (HYDROCODON-ACETAMINOPHEN 5-325) 1 Each Tablet 1 EACH PO Q4H PRN for PAIN, #8 TAB 0 Refills Prov: DARREL CANTU MD 10/06/18 Sucralfate (CARAFATE) 1 Gm Tablet 1 GM PO QID, #60 TAB 0 Refills Prov: DARREL CANTU MD 10/06/18 Alprazolam 0.25 Mg Tab (XANAX 0.25 MG TAB) 0.25 Mg Tablet 1 TAB PO TID PRN for SPASMS, #10 TAB 0 Refills Prov: DARREL CANTU MD 10/06/18 Patient Instructions: Diet for Stomach Ulcers and Gastritis (ED), Gastritis (ED) Additional Instructions: Your chest pain appears to be coming from your stomach and esophagus. Re-start your Lansoprazole, but take it twice a day. Keep taking Gaviscon as needed. Take Carafate 1g tablet four times a day. This medicine coats the stomach to help relieve pain. Follow-up with Dr. Abbasi as planned. May need to consider repeat of EGD given your history of Iqbal's esophagus. You can take Lortab 5/325, one every 4 hours as needed for pain. You can also use your Xanax 0.25mg every 8 hours as needed for pain or spasm. Problem Qualifiers Additional Impression: Gastritis Gastritis type: unspecified gastritis Chronicity: acute Gastritis bleeding: without bleeding Qualified Codes: K29.00 - Acute gastritis without bleeding DARREL CANTU MD Oct 06, 2018 03:08
[2018-10-06] MEDS ORDERED: PANTOPRAZOLE SOD 40 MG IV VIAL IVP ONE (03:30)
[2018-10-06] MEDS ORDERED: MORPHINE 4 MG/ML SDV IVP ONE (03:30)
[2018-10-06] MEDS ORDERED: ASPIRIN 81 MG CHEW PO ONE (03:30)
[2018-10-06 04:05] LABS: PLATELET COUNT, AUTOMATED 154 K/uL (150-450)
--- NOTE | 2018-10-06 04:15 | EKG ---
FACILITY: [facility] PATIENT NAME: SHER BRAVO : [id number] MR: [id number] V: [id number] EXAM DATE: ORDERING PHYSICIAN: DARREL CANTU TECHNOLOGIST: KELL Test Reason : CHEST PAIN Blood Pressure : / mmHG Vent. Rate : 061 BPM Atrial Rate : 061 BPM P-R Int : 198 ms QRS Dur : 106 ms QT Int : 414 ms P-R-T Axes : 051 003 067 degrees QTc Int : 416 ms Normal sinus rhythm Normal ECG When compared with ECG of 31-DEC-2017 06:51, No significant change was found Confirmed by THI TURNER ([id number]) on 10/06/2018 6:58:19 AM Referred By: Confirmed By:THI TURNER
--- NOTE | 2018-10-06 04:38 | RADIOLOGY IMAGING REPORT ---
FACILITY: [facility] PATIENT NAME: Dhruv Gonzalez : 1940 MR: [id number] V: [id number] EXAM DATE: ORDERING PHYSICIAN: DARREL CANTU TECHNOLOGIST: Location: [facility] Patient: Dhruv Gonzalez : 1940 Visit/Account:[id number] Date of Sevice: 10/06/2018 TWO VIEW CHEST 10/06/2018 3:26 AM. INDICATION: Chest Pain COMPARISON: 02/04/2018. FINDINGS: Lungs are well-expanded. The lungs are clear. No pneumothorax or pleural effusion. Pulmo nary vasculature is unremarkable. Heart size is normal. Cholecystectomy clips. IMPRESSION: No acute cardiopulmonary abnormality. Report Dictated By: Watson Rowan MD at 10/06/2018 4:28 AM Report E-Signed By: Watson Rowan MD at 10/06/2018 4:33 AM WSN:[id number]
[2018-10-06] MEDS ORDERED: LIDOCAINE 2% VISC SLN 15ML UDC PO ONE (04:45)
[2018-10-06] MEDS ORDERED: ATRO/SCOPOL/HYOSCY/PB 5 ML ELX PO ONE (04:45)
[2018-10-06] MEDS ORDERED: MAG HYD/AL HYD/SIMETH 30ML UDC PO ONE (04:45)
--- NOTE | 2018-10-06 06:52 | RADIOLOGY IMAGING REPORT ---
FACILITY: [facility] PATIENT NAME: Dhruv Gonzalez : 1940 MR: [id number] V: [id number] EXAM DATE: ORDERING PHYSICIAN: DARREL CANTU TECHNOLOGIST: Location: [facility] Patient: Dhruv Gonzalez : 1940 Visit/Account:[id number] Date of Sevice: 10/06/2018 COMPUTED TOMOGRAPHY CHEST WITHOUT INTRAVENOUS CONTRAST DATE OF EXAM: 10/06/2018 5:51 AM CLINICAL INDICATION: Chest pain history of ascending aortic aneurysm. Severe contrast allergy.. COMPARISON: Same-day chest radiograph, CT abdomen and pelvis 05/18/2018. TECHNIQUE: Noncontrast axial chest CT performed. Sagittal and coronal multiplanar reconstructions we re performed. One of the following dose optimization techniques was utilized in the performance of t his exam: Automated exposure control; adjustment of the mA and/or kV according to the patient's size; or use of an iterative reconstruction technique. Specific details can be referenced in the [facility]'s radiology CT exam operational policy. FINDINGS: Thyroid: Normal. Thoracic inlet: Normal. Heart and great vessels: Heart size is normal. No pericardial effusion. Mild coronary artery calci fication. Dilated ascending aorta measuring approximately 4.4 cm in diameter. No adjacent inflammat ion. No crescentic hyperattenuation to suggest intramural hematoma. Mild atherosclerotic calcificat ion. Central pulmonary arteries are unremarkable. Mediastinum and anabel: No adenopathy. Lungs and pleura: Mild scarring/atelectasis. No suspicious consolidation, pleural effusion or pneum othorax. Calcified granuloma in the left posterior costophrenic sulcus. Breast and axilla: No adenopathy. Upper abdomen: Nonacute. Cholecystectomy. Bones and soft tissues: No acute abnormality or suspicious lesion. IMPRESSION: 1. Ascending aorta measures 4.4 cm in diameter. Although subtle dissection cannot be excluded, ther e is no apparent acute abnormality on this noncontrast examination. 2. Mild coronary artery calcification. Report Dictated By: Watson Rowan MD at 10/06/2018 6:36 AM Report E-Signed By: Watson Rowan MD at 10/06/2018 6:48 AM WSN:[id number]
[2018-10-06] MEDS ORDERED: ALPR-1 PO (07:13)
[2018-10-06] MEDS ORDERED: SUCR1TAB85 PO (07:13)
[2018-10-06] MEDS ORDERED: LOR5/325 PO (07:13)
[2018-10-06 07:45] VITALS: BP 137/86
== END 2018-10-06 08:02 | disposition home or self-care (01) ==
LOC: ER 04:03
DX: K21.9 Gastro-esophageal reflux disease without esophagitis (principal); K29.00 Acute gastritis without bleeding
CPT/HCPCS: 71046; 71250; 82150; 83690; 83880; 84484; 85025; 85379; 93005; 96374; 96375; 99284; A9270; C9113; J2270; 82040; 82247; 82310; 82374; 82435; 82565; 82947; 84075; 84132; 84155; 84295; 84450; 84460; 84520

== ENCOUNTER 2018-11-09 15:00 | Outpatient (RCR) | payer MEDICARE, BC ==
[~2018-11-09 15:00] MED LIST changes: +ALPR-1 PO; -AMLO2.5T76 PO; +AMLO2.5T78 PO; +LOR5/325 PO; +SUCR1TAB85 PO
--- NOTE | 2018-11-11 10:49 | ONCOLOGY FOLLOW UP NOTE ---
EVENT DATE: November 09, 2018 CHIEF COMPLAINT Known history of localized prostate carcinoma. Patient is here to undergo a repeat evaluation, monitor PSA. Patient presently is undergoing active surveillance at this juncture. ONCOLOGY DIAGNOSIS Iraida 6 adenocarcinoma of the prostate, relatively low volume tumor involving the left lateral middle biopsy, background of significant prostatitis on biopsy specimen dated February 05, 2016. Original specimen was obtained by Dr. Contreras. However, the patient is following exclusively with Dr. Latif, urology in [place], at this time. He lives in [place] as well as [place], depending on the time of the year. Patient has significant PSA variability with prior numbers in the 5.9 to 8.2 range. He is also known to have a radiographic abnormality in the prostate by MRI scan at the [facility] on August 01, 2018. 6 mm x 6 mm nodule is notable in the middle right gland. Prostate was enlarged with measurement of 6 x 5.7 x 5.9 cm with a calculated volume of 106 mL. Stage T1c. HISTORY Patient is well known to me and I believe I have seen him on at least two other occasions in the last year. He is presently being evaluated by Dr. Spencer at [facility] [place] and generally once or twice a year seen at the [facility]. The patient states he is doing reasonably well overall. He denies any new or persistent bone pain. His urinary control is very good on average. He denies any dysuria or hematuria. The patient had a PSA of 7.2 ng/mL last May. I did request updated PSA to be drawn just prior to my examination today and results are pending but should be available by Tuesday. Patient occasionally has symptoms of incomplete bladder evacuation, occasional urgency. Score sheet completed by patient. After I saw the patient last summer, he re-met with his urologist and also had a group call by his description with radiation oncology as well as radiology. Given his age and the fact that only one biopsy was positive, it was elected to proceed with surveillance at that time. His PSAs in [place] have typically been in the 2.8 to 4.7 range and last August the PSA was 3.8. BPH symptoms were stable. He has been advised to have PSAs q three months for now. MEDICATIONS 1. Propranolol 40 mg b.i.d. 2. Zolpidem 5 mg nightly p.r.n. 3. Lansoprazole 30 mg q.day. 4. Atorvastatin 10 mg daily. 5. Amitriptyline 25 mg nightly. ALLERGIES LATEX, SULFA and IODINE. PAST MEDICAL HISTORY 1. Prostate cancer. 2. Sleep apnea. 3, Irritable bowel syndrome. 4. Hypertension . 5. GERD. 6. Chronic prostatitis. 7. BPH. PAST SURGICAL HISTORY 1. C-spine. 2. Cholecystectomy. 3. Sinus surgery. 4. Tonsillectomy. SOCIAL HISTORY Nonsmoker. Social alcohol use. 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 FAMILY HISTORY Notable for a mother who had breast cancer at age 45 and father had leukemia at age 78. REVIEW OF SYSTEMS Notable for occasional urgency, migratory joint and muscle pain, intermittent abdominal pain, history of intermittent infections. PHYSICAL EXAMINATION GENERAL: Pleasant, talkative 78-year-old male of large build. VITAL SIGNS: BP 140/86, pulse 73, respirations 16, O2 sat 92% on room air. KPS: 90. NECK: No lymphadenopathy. LUNGS: Clear bilaterally. CARDIOVASCULAR: Heart sounds regular. ABDOMEN: Soft. No gross organomegaly, mass or tenderness. RECTAL: There is some central enlargement of the prostate, consistent with BPH. Minor induration in the peripheral zone bilaterally but no obvious tenderness today and no significant change from my last rectal exam in prostate size. EXTREMITIES: No edema, cyanosis. IMPRESSION Low volume adenocarcinoma of the prostate. Although the patient's life expectancy would be estimated at greater than five years, the decision has been reached from the patient and mutual providers that he will only proceed with treatment if his PSA shows a progressive elevation. If the latter is the case, he may or may not elect for repeat prostate biopsy depending on his wishes. I previously detailed multiple radiation therapy programs to the patient if he elects for therapy. He is not a candidate for prostate brachytherapy due to the size of the gland. The patient will have PSA in February and see his urologist in [place]. He will have repeat PSA in May and I will see him at the [facility] at that time. All questions were answered to his satisfaction over a one hour conversation and examination counseling visit today. Continue local medical care with Dr. Salinas. YANCY
== END 2019-02-01 ==
LOC: RAON 15:00
PROVIDERS: ATTEND Radiology Radiation Oncology
DX: C61 Malignant neoplasm of prostate (principal)
CPT/HCPCS: 36415; 84153

== ENCOUNTER 2019-04-24 17:05 | Outpatient (RCR) | payer MEDICARE, BC | END 2019-04-25 16:36 | disposition home or self-care (01) | LOC: RAON 17:05 | PROVIDERS: ATTEND Radiology Radiation Oncology | DX: Z02.9 Encounter for administrative examinations, unspecified (principal) ==